=== PATIENT | male | born 1980 | race Hispanic/Latino ===

== ENCOUNTER 2018-08-21 21:57 | Emergency (ER) | payer OTHER ==
[~2018-08-21] VITALS: Ht 177.8 cm; Wt 83.9 kg
--- OUTSIDE RECORDS SUMMARY | ~2018-08-21 | XMS | Clinical Summary ---
Demographics + + + | Address | [address] | | | [place] [address] | + + + | Home Phone | | + + + | Preferred Language | Unknown | + + + | Marital Status | | + + + | Yarsanism Affiliation | Unknown | + + + | Race | Unknown | + + + | Ethnic Group | Unknown | + + + Author + + + | Author | [employer] | + + + | Organization | [facility] | + + + | Address | Unknown | + + + | Phone | Unavailable | + + + Support + + +---------+ + | Name | Relationship | Address | Phone | + + +---------+ + | Sena Amaral | ECON | Unknown | | + + +---------+ + Care Team Providers + +------+ + | Care Product Support Engineer Name | Role | Phone | + +------+ + PP | Unavailable | + +------+ + Allergies No Known Allergies Current Medications No known medications Active Problems + + + | Problem | Noted Date | + + + | Abdominal pain | 02/22/2014 | + + + Family History + +------+--------+ + | Relation | Name | Status | Comments | + +------+--------+ + | Father | | Alive | healthy | + +------+--------+ + | Mother | | Alive | healthy | + +------+--------+ + Social History + +-------+ +--------+------+ | Tobacco Use | Types | Packs/Day | Years | Date | | | | | Used | | + +-------+ +--------+------+ | Never Smoker | | | | | + +-------+ +--------+------+ + +---+---+---+ | Smokeless Tobacco: | | | | | Never Used | | | | + +---+---+---+ + + +---------+ + | Alcohol Use | Drinks/We | oz/Week | Comments | | | ek | | | + + +---------+ + | Yes | | | "once in a while" | + + +---------+ + + + + | Sex Assigned at | Date Recorded | | | | + + + | Not on file | | + + + Last Filed Vital Signs + + + + | Vital Sign | Reading | Time Taken | + + + + | Blood Pressure | 120/80 | 02/26/2014 1:23 PM PDT | + + + + | Pulse | 64 | 02/26/2014 1:23 PM PDT | + + + + | Temperature | - | - | + + + + | Respiratory Rate | - | - | + + + + | Oxygen Saturation | - | - | + + + + | Inhaled Oxygen | - | - | | Concentration | | | + + + + | Weight | 83.3 kg (183 lb 9.6 | 02/26/2014 1:23 PM PDT | | | oz) | | + + + + | Height | 177.8 cm (5' 10") | 02/26/2014 1:23 PM PDT | + + + + | Body Mass Index | 26.34 | 02/26/2014 1:23 PM PDT | + + + + Plan of Treatment + + + + + | Health Maintenance | Due Date | Last Done | Comments | + + + + + | Vaccine: | | | | | Dtap/Tdap/Td (1 - | 2 | | | | Tdap) | | | | + + + + + | Vaccine: Influenza | | | | | (#1) | 8 | | | + + + + + Results Not on filefrom Last 3 Months Insurance + +--------+ +------+-------+ + | Payer | Benefi | Subscriber | Type | Phone | Address | | | t Plan | ID | | | | | | / | | | | | | | Group | | | | | + +--------+ +------+-------+ + | MEDICAID | MEDICA | [id number] | | | [address] | | | ID - | | | | [place] | | | [place] | | | | [phone] | + +--------+ +------+-------+ + + +--------+ +--------+ + + | Guarantor Name | Accoun | Relation to | Date | Phone | Billing Address | | | t Type | Patient | of | | | | | | | | | | + +--------+ +--------+ + + | HOWARD | Person | Self [birth year] Home: | [address] | | [place] | al/Fam | | 1980 | [phone] | [place] | | | [place] | | | [phone] | [phone] | + +--------+ +--------+ + +
--- OUTSIDE RECORDS SUMMARY | ~2018-08-21 | XMS | Clinical Summary ---
Demographics + + + | Address | [address] | | | [place] [address] | + + + | Home Phone | | + + + | Preferred Language | Unknown | + + + | Marital Status | | + + + | Sikh Affiliation | Unknown | + + + | Race | Unknown | + + + | Ethnic Group | Unknown | + + + Author + + + | Author | [employer] | + + + | Organization | [facility] | + + + | Address | Unknown | + + + | Phone | Unavailable | + + + Support + + +---------+ + | Name | Relationship | Address | Phone | + + +---------+ + | Sena Amaral | ECON | Unknown | | + + +---------+ + Care Team Providers + +------+ + | Care [place] Instructor Name | Role | Phone | + [...] +------+-------+ + | MEDICAID | MEDICA | [id number] | | | [address] | | | ID - | | | | [place] | | | [place] | | | | [phone] | + +--------+ +------+-------+ + + +--------+ [...] LENTZ | al/Fam | | 1980 | [phone] | [place] | | | [place] | | | [phone] | [phone] | + +--------+ +--------+ + +
[~2018-08-21 21:57] MED LIST: ADVIL200 M1 PO; NORCO 5-325 TA1 EACH PO; PREDNISONE20 MG PO
[2018-08-21] MEDS ORDERED: AUGMENTIN 875-1 EACH PO (22:30)
[2018-08-21] MEDS ORDERED: FLAGYL500 MG PO (22:30)
[2018-08-21] MEDS ORDERED: NORCO 5-325 TA1 EACH PO (22:31)
== END 2018-08-22 02:12 | disposition left against medical advice (07) ==
LOC: ED 21:57
DX: K12.2 Cellulitis and abscess of mouth (principal); K04.7 Periapical abscess without sinus; Z79.899 Other long term (current) drug therapy
CPT/HCPCS: 70491; 80053; 85025; 99284-25; J1100; J1170; J2405; J3490; J7030; Q9967